=== PATIENT | female | born 1960 ===

== ENCOUNTER 2017-12-29 12:14 | Inpatient (IN) | payer BC, MEDICAID ==
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
[2017-12-29 13:10] LABS: Hematocrit 43 % (35-47); Hemoglobin 13.9 g/dl (12.0-16.0); Mean Corpuscular HGB Conc 33 g/dl (31-36); Mean Corpuscular Hemoglobin 29 pg (27-31); Mean Corpuscular Volume 90 fL (80-97); Red Blood Count 4.73 10^6/ul (4.00-5.40); Red Cell Distribution Width 14 % (10.5-15); White Blood Count 15.5 10^3/ul (3.5-10.8)
[2017-12-29 13:24] LABS: EGFR Non-African American 80.2 (>60)
[2017-12-29 14:09] LABS: ABS Basophils 0.1 10^3/ul (0-0.2); ABS Eosinophils 0.3 10^3/ul (0-0.6); ABS Monocytes 0.7 10^3/ul (0-0.8); ABS Neutrophils 10.4 10^3/ul (1.5-7.7); ABS Nucleated RBC 0 10^3/ul; Eosinophil % 2.1 % (0-6); Mean Platelet Volume 10.4 um3 (7.4-10.4); Nucleated Red Blood Cells % 0.2; Platelet Count 272 10^3/ul (150-450)
[2017-12-29] MEDS ORDERED: Magnesium Hydroxide LIQ* 30 ML UDC PO PRN (15:42)
[2017-12-29] MEDS: Insulin LISPRO* 1 UNITS UNIT SUBCUT SCH (18:51)
[2017-12-29] MEDS: traMADol TAB* 50 MG PO PRN (20:25)
[2017-12-29] MEDS: Heparin VIAL(*) 5000 UNITS/ML VIAL (FIVE THOUSAND) SUBCUT SCH (20:26)
[2017-12-29] MEDS: Famotidine TAB* 20 MG PO SCH (20:26)
[2017-12-29] MEDS: Insulin GLARGINE(*) 1 UNITS UNIT SUBCUT SCH (20:27)
[2017-12-29] MEDS: ALPRAZolam TAB* 0.25 MG PO PRN (20:32)
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
[2017-12-30] MEDS: Heparin VIAL(*) 5000 UNITS/ML VIAL (FIVE THOUSAND) SUBCUT SCH ×3 (07:15→21:39)
[2017-12-30] MEDS: Levothyroxine TAB* 100 MCG TAB PO SCH (07:15)
[2017-12-30] MEDS: Insulin GLARGINE(*) 1 UNITS UNIT SUBCUT SCH ×2 (09:00→21:39)
[2017-12-30] MEDS: Insulin LISPRO* 1 UNITS UNIT SUBCUT SCH ×3 (09:00→17:33)
[2017-12-30] MEDS: Aspirin EC TAB* 81 MG TAB.EC PO SCH (09:00)
[2017-12-30] MEDS: Atorvastatin* 40 MG TAB PO SCH (09:00)
[2017-12-30] MEDS: Famotidine TAB* 20 MG PO SCH ×2 (09:00→21:38)
[2017-12-30] MEDS: Lisinopril TAB* 10 MG PO SCH (09:00)
[2017-12-30] MEDS: Metoprolol Succinate XL TAB* 50 MG PO SCH (09:00)
[2017-12-30] MEDS: DULoxetine DR CAP* 60 MG CAP.DR PO SCH (09:04)
--- NOTE | 2017-12-30 15:30 | PN ---
Subjective Date of Service: 12/30/17 Interval History: Ms. Pavon feels well today. She is concerned about going back to a assisted. She has been to multiple nursing homes recently and has not been happy with the care she received. She feels as though she would do fine in an apartment or independent living because she feels as though she has no problems with ADLs. She reports feeling depressed, but does not verbalize any suicidal ideations to me. Denies CP, SOB, N/V/D, dizziness. No pain. Family History: Unchanged from Admission Social History: Unchanged from Admission Past Medical History: Unchanged from Admission Objective Active Medications: Acetaminophen (Tylenol Tab*) 650 mg PO Q4H PRN Alprazolam (Xanax Tab*) 0.25 mg PO Q8H PRN Aspirin (Aspirin Ec Tab*) 81 mg PO DAILY ANEL Atorvastatin Calcium (Lipitor*) 40 mg PO DAILY ANEL Duloxetine HCl (Cymbalta Cap*) 60 mg PO DAILY ANEL Famotidine (Pepcid Tab*) 20 mg PO BID ANEL; Protocol Heparin Sodium (Porcine) (Heparin Vial(*)) 5,000 units SUBCUT Q8HR ANEL Insulin Glargine (Lantus(*)) 40 units SUBCUT Q12H ANEL Insulin Human Lispro (Humalog*) 25 units SUBCUT AC ANEL Levothyroxine Sodium (Synthroid Tab*) 100 mcg PO 0600 ANEL Lisinopril (Prinivil Tab*) 20 mg PO DAILY ANEL Magnesium Hydroxide (Milk Of Magnesia Liq*) 30 ml PO Q4H PRN Metoprolol Succinate (Toprol Xl Tab*) 50 mg PO DAILY ANEL Temazepam (Restoril Cap*) 15 mg PO BEDTIME PRN Tramadol HCl (Ultram*) 50 mg PO Q12H PRN Vital Signs - 8 hr 12/30/17 07:44 Temperature 97.8 F Pulse Rate 79 Respiratory 15 Rate Blood Pressure 114/54 (mmHg) O2 Sat by Pulse 96 Oximetry Oxygen Devices in Use Now: None Appearance: Middle-aged woman sitting in chair in NAD Eyes: No Scleral Icterus Ears/Nose/Mouth/Throat: Mucous Membranes Moist Neck: NL Appearance and Movements; NL JVP Respiratory: Symmetrical Chest Expansion and Respiratory Effort, Clear to Auscultation Cardiovascular: NL Sounds; No Murmurs; No JVD, RRR Abdominal: NL Sounds; No Tenderness; No Distention Extremities: No Edema, No Clubbing, Cyanosis Skin: No Rash or Ulcers Neurological: Alert and Oriented x 3, - - Poor historian Lines/Tubes/Other Access: Clean, Dry and Intact Peripheral IV Nutrition: Taking PO's Result Diagrams: 12/29/17 12:47 12/29/17 12:47 Assess/Plan/Problems-Billing Assessment: Ms. Pavon is a 57yo with PMH of DM2, HLD, HTN, GERD, and chronic pain who presented to the ED on 12/29/17 from [facility] as the staff there felt as though they were not able to care for her, and was admitted for group home care. - Patient Problems (1) Diabetes mellitus type 2, uncontrolled Current Visit: Yes Status: Chronic Priority: High Code(s): E11.65 - TYPE 2 DIABETES MELLITUS WITH HYPERGLYCEMIA SNOMED Code(s): 17326071 Comment: - HgbA1C 12% - Glucose well controlled this admission on home insulin, so likely noncompliance with medications - Continue glargine, lispro AC (2) HTN (hypertension) Current Visit: Yes Status: Chronic Priority: Medium Code(s): I10 - ESSENTIAL (PRIMARY) HYPERTENSION SNOMED Code(s): 80864307 Comment: - Normotensive - Continue metoprolol, lisinopril (3) HLD (hyperlipidemia) Current Visit: Yes Status: Chronic Priority: Medium Code(s): E78.5 - HYPERLIPIDEMIA, UNSPECIFIED SNOMED Code(s): 20070044 Comment: - Continue atorvastatin (4) GERD (gastroesophageal reflux disease) Current Visit: Yes Status: Chronic Priority: Medium Code(s): K21.9 - GASTRO-ESOPHAGEAL REFLUX DISEASE WITHOUT ESOPHAGITIS SNOMED Code(s): 690286932 Comment: - Continue famotidine (5) Hypothyroidism Current Visit: Yes Status: Chronic Priority: Medium Code(s): E03.9 - HYPOTHYROIDISM, UNSPECIFIED SNOMED Code(s): 00677409 Comment: - Continue levothyroxine (6) Full code status Current Visit: Yes Status: Acute Priority: High Code(s): Z78.9 - OTHER SPECIFIED HEALTH STATUS SNOMED Code(s): 378582697 (7) DVT prophylaxis Current Visit: Yes Status: Acute Priority: High Code(s): FZC7132 - SNOMED Code(s): 352872733 Comment: - Heparin SQ Status and Disposition: Senior Care. Pending psych consult for capacity.
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
[2017-12-30] MEDS: ALPRAZolam TAB* 0.25 MG PO PRN (21:38)
[2017-12-30] MEDS: traMADol TAB* 50 MG PO PRN (21:39)
[2017-12-30] MEDS: Temazepam CAP* 15 MG PO PRN (21:39)
[2017-12-31] MEDS: Levothyroxine TAB* 100 MCG TAB PO SCH (06:50)
[2017-12-31] MEDS: Heparin VIAL(*) 5000 UNITS/ML VIAL (FIVE THOUSAND) SUBCUT SCH ×3 (06:50→21:39)
[2017-12-31 07:00] LABS: ABS Basophils 0 10^3/ul (0-0.2); ABS Eosinophils 0.2 10^3/ul (0-0.6); ABS Lymphocytes 3.5 10^3/ul (1.0-4.8); ABS Monocytes 0.5 10^3/ul (0-0.8); ABS Neutrophils 3.4 10^3/ul (1.5-7.7); ABS Nucleated RBC 0 10^3/ul; Eosinophil % 2.8 % (0-6); Hematocrit 36 % (35-47); Hemoglobin 11.8 g/dl (12.0-16.0); Lymphocyte % 45.2 % (25-47); Mean Corpuscular HGB Conc 33 g/dl (31-36); Mean Corpuscular Hemoglobin 29 pg (27-31); Mean Corpuscular Volume 89 fL (80-97); Mean Platelet Volume 9.8 um3 (7.4-10.4); Nucleated Red Blood Cells % 0.1; Platelet Count 245 10^3/ul (150-450); Red Blood Count 4.04 10^6/ul (4.00-5.40); Red Cell Distribution Width 14 % (10.5-15); White Blood Count 7.7 10^3/ul (3.5-10.8)
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
[2017-12-31] MEDS: Insulin GLARGINE(*) 1 UNITS UNIT SUBCUT SCH ×2 (10:25→20:34)
[2017-12-31] MEDS: Insulin LISPRO* 1 UNITS UNIT SUBCUT SCH ×3 (10:26→18:40)
[2017-12-31] MEDS: Atorvastatin* 40 MG TAB PO SCH (10:27)
[2017-12-31] MEDS: Famotidine TAB* 20 MG PO SCH ×2 (10:28→20:35)
[2017-12-31] MEDS: DULoxetine DR CAP* 60 MG CAP.DR PO SCH (10:28)
[2017-12-31] MEDS: Aspirin EC TAB* 81 MG TAB.EC PO SCH (10:28)
[2017-12-31] MEDS: Metoprolol Succinate XL TAB* 50 MG PO SCH (10:28)
[2017-12-31] MEDS: Lisinopril TAB* 10 MG PO SCH (10:29)
[2017-12-31] MEDS: traMADol TAB* 50 MG PO PRN (11:31)
--- NOTE | 2017-12-31 15:11 | PN ---
Subjective - Subjective Date of Service: 12/31/17 Service Type: [id number] Hosp care 15 min low complexity Subjective: Patient asserts that she can care for herself despite need for 2 assist. She reports desire to live in [facility] in an assisted living facility. She goes on to describe various needs, including a hospital bed, in order for her to care for herself. She is irritable and defensive in regards to temporary placement needs. She states "you are not going to put me in a fdc!" Objective - Appearance Appearance: Obese Dysmorphic Features: No Hygiene: Mal-odorous Grooming: Disheveled - Behavior Psychomotor Activities: Normal Exhibits Abnormal Movement: No - Attitude and Relatedness Attitude and Relatedness: Superficially Cooperative Eye Contact: Good - Speech Quality: Unpressured Latencies: Normal Quantity: Appropriate - Mood Patient's Decription of Mood: "Fine" - Affect Observed Affect: Good Affect Consistent with: Euthymia - Thought Process Patient's Thought Process: Circumstantial Thought Content: Yes Passive Wish - contigent upon placement, No Suicidal Planning, No Homicidal Ideation, No Paranoid Ideation - Sensorium Experiencing Hallucinations: No, Sensorium is Clear Type of Hallucinations: Visual: No, Auditory: No, Command: No - Level of Consciousness Level of Consciousness: Alert Orientation: Yes Intact, Yes Orientated to Time, Yes Orientated to Place, Yes Orientated to Person - Insight and Judgement Insight and Judgement: Impaired Plan - Plan Treatment Plan: Name: CLIFTON HOFFMAN Birthdate: 1960 [id number] Patient lacks capacity to make informed medical decisions due to impaired judgment and need for [facility]cfp. Medications: Current Medications Acetaminophen (Tylenol Tab*) 650 mg PO Q4H PRN PRN Reason: FEVER/PAIN Alprazolam (Xanax Tab*) 0.25 mg PO Q8H PRN PRN Reason: ANXIETY Last Admin: 12/30/17 21:38 Dose: 0.25 mg Aspirin (Aspirin Ec Tab*) 81 mg PO DAILY [facility] Last Admin: 12/31/17 10:28 Dose: 81 mg Atorvastatin Calcium (Lipitor*) 40 mg PO DAILY [facility] Last Admin: 12/31/17 10:27 Dose: 40 mg Duloxetine HCl (Cymbalta Cap*) 60 mg PO DAILY [facility] Last Admin: 10/24/18 10:28 Dose: 60 mg Famotidine (Pepcid Tab*) 20 mg PO BID [facility]; Protocol Last Admin: 12/31/17 10:28 Dose: 20 mg Heparin Sodium (Porcine) (Heparin Vial(*)) 5,000 units SUBCUT Q8HR [facility] Last Admin: 12/31/17 14:38 Dose: 5,000 units Insulin Glargine (Lantus(*)) 40 units SUBCUT Q12H [facility] Last Admin: 12/31/17 10:25 Dose: 40 unit Insulin Human Lispro (Humalog*) 25 units SUBCUT AC [facility] Last Admin: 12/31/17 12:47 Dose: 25 units Levothyroxine Sodium (Synthroid Tab*) 100 mcg PO 0600 [facility] Last Admin: 12/31/17 06:50 Dose: 100 mcg Lisinopril (Prinivil Tab*) 20 mg PO DAILY [facility] Last Admin: 12/31/17 10:29 Dose: 20 mg Magnesium Hydroxide (Milk Of Magnesia Liq*) 30 ml PO Q4H PRN PRN Reason: CONSTIPATION Metoprolol Succinate (Toprol Xl Tab*) 50 mg PO DAILY [facility] Last Admin: 12/31/17 10:28 Dose: 50 mg Temazepam (Restoril Cap*) 15 mg PO BEDTIME PRN PRN Reason: INSOMNIA Last Admin: 12/30/17 21:39 Dose: 15 mg Tramadol HCl (Ultram*) 50 mg PO Q12H PRN PRN Reason: leg pain Last Admin: 12/31/17 11:31 Dose: 50 mg
[2017-12-31] MEDS: Temazepam CAP* 15 MG PO PRN (20:44)
[2018-01-01] MEDS: Levothyroxine TAB* 100 MCG TAB PO SCH (05:14)
[2018-01-01] MEDS: Heparin VIAL(*) 5000 UNITS/ML VIAL (FIVE THOUSAND) SUBCUT SCH ×3 (05:14→21:25)
[2018-01-01] MEDS: Metoprolol Succinate XL TAB* 50 MG PO SCH (08:44)
[2018-01-01] MEDS: Famotidine TAB* 20 MG PO SCH ×2 (08:44→21:26)
[2018-01-01] MEDS: Atorvastatin* 40 MG TAB PO SCH (08:44)
[2018-01-01] MEDS: Lisinopril TAB* 10 MG PO SCH (08:44)
[2018-01-01] MEDS: Insulin LISPRO* 1 UNITS UNIT SUBCUT SCH ×3 (08:44→17:28)
[2018-01-01] MEDS: Insulin GLARGINE(*) 1 UNITS UNIT SUBCUT SCH ×2 (08:44→21:24)
[2018-01-01] MEDS: Aspirin EC TAB* 81 MG TAB.EC PO SCH (08:44)
[2018-01-01] MEDS: DULoxetine DR CAP* 60 MG CAP.DR PO SCH (08:46)
--- NOTE | 2018-01-01 13:43 | PN ---
Subjective Date of Service: 01/01/18 Interval History: Ms. Pvaon feels well today. She is experiencing some left foot weakness which she says is typical for her intermittently. She is still able to ambulate and has been up in the room with 1 assist. Still adamant that she does not want to go to a snf and would prefer independent living. Denies CP, SOB, N/V/D , dizziness. Family History: Unchanged from Admission Social History: Unchanged from Admission Past Medical History: Unchanged from Admission Objective Active Medications: Acetaminophen (Tylenol Tab*) 650 mg PO Q4H PRN Alprazolam (Xanax Tab*) 0.25 mg PO Q8H PRN Aspirin (Aspirin Ec Tab*) 81 mg PO DAILY [facility] Atorvastatin Calcium (Lipitor*) 40 mg PO DAILY [facility] Duloxetine HCl (Cymbalta Cap*) 60 mg PO DAILY [facility] Famotidine (Pepcid Tab*) 20 mg PO BID [facility]; Protocol Heparin Sodium (Porcine) (Heparin Vial(*)) 5,000 units SUBCUT Q8HR [facility] Insulin Glargine (Lantus(*)) 40 units SUBCUT Q12H [facility] Insulin Human Lispro (Humalog*) 25 units SUBCUT AC [facility] Levothyroxine Sodium (Synthroid Tab*) 100 mcg PO 0600 [facility] Lisinopril (Prinivil Tab*) 20 mg PO DAILY [facility] Magnesium Hydroxide (Milk Of Magnesia Liq*) 30 ml PO Q4H PRN Metoprolol Succinate (Toprol Xl Tab*) 50 mg PO DAILY [facility] Temazepam (Restoril Cap*) 15 mg PO BEDTIME PRN Tramadol HCl (Ultram*) 50 mg PO Q12H PRN Vital Signs - 8 hr 01/01/18 01/01/18 01/01/18 07:44 08:00 13:36 Temperature 97.6 F 98.3 F Pulse Rate 55 58 Respiratory 16 20 18 Rate Blood Pressure 141/54 116/64 (mmHg) O2 Sat by Pulse 100 99 Oximetry Oxygen Devices in Use Now: None Appearance: Middle-aged woman sitting in bed in NAD Eyes: No Scleral Icterus Ears/Nose/Mouth/Throat: Mucous Membranes Moist Neck: NL Appearance and Movements; NL JVP Respiratory: Symmetrical Chest Expansion and Respiratory Effort, Clear to Auscultation Cardiovascular: NL Sounds; No Murmurs; No JVD, RRR Abdominal: NL Sounds; No Tenderness; No Distention Extremities: No Edema, No Clubbing, Cyanosis Skin: No Rash or Ulcers Neurological: Alert and Oriented x 3, NL Sensation, NL Muscle Strength and Tone Lines/Tubes/Other Access: Clean, Dry and Intact Peripheral IV Nutrition: Taking PO's Result Diagrams: 12/31/17 06:34 12/29/17 12:47 Assess/Plan/Problems-Billing Assessment: Ms. Pavon is a 57yo with PMH of DM2, HLD, HTN, GERD, and chronic pain who presented to the ED on 12/29/17 from [facility] as the staff there felt as though they were not able to care for her, and was admitted for fci care. - Patient Problems (1) Intellectual disability Current Visit: Yes Status: Chronic Priority: High Code(s): F79 - UNSPECIFIED INTELLECTUAL DISABILITIES SNOMED Code(s): 374502807 Comment: - Lacks capacity per psych - Psych following, any additional recommendations (2) Diabetes mellitus type 2, uncontrolled Current Visit: Yes Status: Chronic Priority: High Code(s): E11.65 - TYPE 2 DIABETES MELLITUS WITH HYPERGLYCEMIA SNOMED Code(s): 74422220 Comment: - HgbA1C 12%; glucose well controlled this admission on home insulin, so likely noncompliance with medications - Continue glargine, lispro AC (3) HTN (hypertension) Current Visit: Yes Status: Chronic Priority: Medium Code(s): I10 - ESSENTIAL (PRIMARY) HYPERTENSION SNOMED Code(s): 13201782 Comment: - Normotensive - Continue metoprolol, lisinopril (4) HLD (hyperlipidemia) Current Visit: Yes Status: Chronic Priority: Medium Code(s): E78.5 - HYPERLIPIDEMIA, UNSPECIFIED SNOMED Code(s): 14548014 Comment: - Continue atorvastatin (5) GERD (gastroesophageal reflux disease) Current Visit: Yes Status: Chronic Priority: Medium Code(s): K21.9 - GASTRO-ESOPHAGEAL REFLUX DISEASE WITHOUT ESOPHAGITIS SNOMED Code(s): 257762669 Comment: - Continue famotidine (6) Hypothyroidism Current Visit: Yes Status: Chronic Priority: Medium Code(s): E03.9 - HYPOTHYROIDISM, UNSPECIFIED SNOMED Code(s): 44545597 Comment: - Continue levothyroxine (7) Full code status Current Visit: Yes Status: Acute Priority: High Code(s): Z78.9 - OTHER SPECIFIED HEALTH STATUS SNOMED Code(s): 456740425 (8) DVT prophylaxis Current Visit: Yes Status: Acute Priority: High Code(s): ZMM1259 - SNOMED Code(s): 160891804 Comment: - Heparin SQ Status and Disposition: Inpatient fci. Looking for placement.
[2018-01-01] MEDS: traMADol TAB* 50 MG PO PRN (14:35)
[2018-01-01] MEDS: Acetaminophen TAB* 325 MG PO PRN (21:25)
[2018-01-01] MEDS: Temazepam CAP* 15 MG PO PRN (21:26)
[2018-01-02] MEDS: Heparin VIAL(*) 5000 UNITS/ML VIAL (FIVE THOUSAND) SUBCUT SCH ×3 (06:09→22:38)
[2018-01-02] MEDS: Levothyroxine TAB* 100 MCG TAB PO SCH (06:10)
[2018-01-02] MEDS: Insulin GLARGINE(*) 1 UNITS UNIT SUBCUT SCH ×2 (08:56→22:37)
[2018-01-02] MEDS: Insulin LISPRO* 1 UNITS UNIT SUBCUT SCH ×3 (08:56→18:02)
[2018-01-02] MEDS: Lisinopril TAB* 10 MG PO SCH (08:57)
[2018-01-02] MEDS: Aspirin EC TAB* 81 MG TAB.EC PO SCH (08:57)
[2018-01-02] MEDS: Metoprolol Succinate XL TAB* 50 MG PO SCH (08:57)
[2018-01-02] MEDS: DULoxetine DR CAP* 60 MG CAP.DR PO SCH (08:57)
[2018-01-02] MEDS: Atorvastatin* 40 MG TAB PO SCH (08:57)
[2018-01-02] MEDS: Famotidine TAB* 20 MG PO SCH ×2 (08:57→22:37)
[2018-01-02] MEDS: Acetaminophen TAB* 325 MG PO PRN (10:05)
--- NOTE | 2018-01-02 15:01 | PN ---
Subjective Date of Service: 01/02/18 Interval History: Ms. Pavon feels fine today. She continues to have some right foot weakness as well as some limited ROM, though she continues to state this is normal for her. She is having a small amount of bright red blood per rectum. Patient states she has had problems with hemorrhoids in the past and they tend to flare up often. She has been up ambulating. Continues to state that she wants to stay in [place] and does not want to go to a group home. Denies CP, SOB, N/V/D, dizziness. Family History: Unchanged from Admission Social History: Unchanged from Admission Past Medical History: Unchanged from Admission Objective Active Medications: Acetaminophen (Tylenol Tab*) 650 mg PO Q4H PRN Alprazolam (Xanax Tab*) 0.25 mg PO Q8H PRN Aspirin (Aspirin Ec Tab*) 81 mg PO DAILY [facility] Atorvastatin Calcium (Lipitor*) 40 mg PO DAILY [facility] Duloxetine HCl (Cymbalta Cap*) 60 mg PO DAILY [facility] Famotidine (Pepcid Tab*) 20 mg PO BID [facility]; Protocol Heparin Sodium (Porcine) (Heparin Vial(*)) 5,000 units SUBCUT Q8HR [facility] Insulin Glargine (Lantus(*)) 40 units SUBCUT Q12H [facility] Insulin Human Lispro (Humalog*) 25 units SUBCUT AC [facility] Levothyroxine Sodium (Synthroid Tab*) 100 mcg PO 0600 [facility] Lisinopril (Prinivil Tab*) 20 mg PO DAILY [facility] Magnesium Hydroxide (Milk Of Magnesia Liq*) 30 ml PO Q4H PRN Metoprolol Succinate (Toprol Xl Tab*) 50 mg PO DAILY [facility] Temazepam (Restoril Cap*) 15 mg PO BEDTIME PRN Tramadol HCl (Ultram*) 50 mg PO Q12H PRN Vital Signs - 8 hr 01/02/18 01/02/18 07:55 07:56 Temperature 96.6 F Pulse Rate 52 Respiratory 18 16 Rate Blood Pressure 125/56 (mmHg) O2 Sat by Pulse 100 Oximetry Oxygen Devices in Use Now: None Appearance: Middle-aged woman sitting in chair in NAD Eyes: No Scleral Icterus Ears/Nose/Mouth/Throat: Mucous Membranes Moist Neck: NL Appearance and Movements; NL JVP Respiratory: Symmetrical Chest Expansion and Respiratory Effort, Clear to Auscultation Cardiovascular: NL Sounds; No Murmurs; No JVD, RRR Abdominal: NL Sounds; No Tenderness; No Distention Extremities: No Edema, No Clubbing, Cyanosis Skin: No Rash or Ulcers Neurological: Alert and Oriented x 3 Lines/Tubes/Other Access: Clean, Dry and Intact Peripheral IV Nutrition: Taking PO's Result Diagrams: 12/31/17 06:34 12/29/17 12:47 Assess/Plan/Problems-Billing Assessment: Ms. Pavon is a 57yo with PMH of DM2, HLD, HTN, GERD, and chronic pain who presented to the ED on 12/29/17 from [facility] as the staff there felt as though they were not able to care for her, and was admitted for penitentiary care. - Patient Problems (1) Intellectual disability Current Visit: Yes Status: Chronic Priority: High Code(s): F79 - UNSPECIFIED INTELLECTUAL DISABILITIES SNOMED Code(s): 203334588 Comment: - Lacks capacity per psych - Psych following; any additional recommendations appreciated (2) Bleeding hemorrhoids Current Visit: Yes Status: Acute Priority: High Code(s): K64.9 - UNSPECIFIED HEMORRHOIDS SNOMED Code(s): 30711730 Comment: - No external hemorrhoids - Likely cause of BRBPR; little concern for GIB at this time - Start tucks - Will check CBC in the AM (3) Diabetes mellitus type 2, uncontrolled Current Visit: Yes Status: Chronic Priority: High Code(s): E11.65 - TYPE 2 DIABETES MELLITUS WITH HYPERGLYCEMIA SNOMED Code(s): 99133728 Comment: - HgbA1C 12%; glucose well controlled this admission on home insulin, so likely noncompliance with medications - Continue glargine, lispro AC (4) HTN (hypertension) Current Visit: Yes Status: Chronic Priority: Medium Code(s): I10 - ESSENTIAL (PRIMARY) HYPERTENSION SNOMED Code(s): 76593098 Comment: - Normotensive - Continue metoprolol, lisinopril (5) HLD (hyperlipidemia) Current Visit: Yes Status: Chronic Priority: Medium Code(s): E78.5 - HYPERLIPIDEMIA, UNSPECIFIED SNOMED Code(s): 37668508 Comment: - Continue atorvastatin (6) GERD (gastroesophageal reflux disease) Current Visit: Yes Status: Chronic Priority: Medium Code(s): K21.9 - GASTRO-ESOPHAGEAL REFLUX DISEASE WITHOUT ESOPHAGITIS SNOMED Code(s): 550451475 Comment: - Continue famotidine (7) Hypothyroidism Current Visit: Yes Status: Chronic Priority: Medium Code(s): E03.9 - HYPOTHYROIDISM, UNSPECIFIED SNOMED Code(s): 71447473 Comment: - Continue levothyroxine (8) Full code status Current Visit: Yes Status: Acute Priority: High Code(s): Z78.9 - OTHER SPECIFIED HEALTH STATUS SNOMED Code(s): 598628372 (9) DVT prophylaxis Current Visit: Yes Status: Acute Priority: High Code(s): PCI8840 - SNOMED Code(s): 926975570 Comment: - Heparin SQ Status and Disposition: Inpatient penitentiary. Looking for placement.
[2018-01-02] MEDS: Witch Hazel PAD* JAR TOPICAL SCH (18:03)
[2018-01-02] MEDS: Temazepam CAP* 15 MG PO PRN (22:36)
[2018-01-03] MEDS: Levothyroxine TAB* 100 MCG TAB PO SCH (05:49)
[2018-01-03] MEDS: Heparin VIAL(*) 5000 UNITS/ML VIAL (FIVE THOUSAND) SUBCUT SCH ×3 (05:53→22:42)
[2018-01-03 07:40] LABS: ABS Basophils 0 10^3/ul (0-0.2); ABS Eosinophils 0.3 10^3/ul (0-0.6); ABS Lymphocytes 3.6 10^3/ul (1.0-4.8); ABS Monocytes 0.6 10^3/ul (0-0.8); ABS Neutrophils 4.8 10^3/ul (1.5-7.7); ABS Nucleated RBC 0 10^3/ul; Eosinophil % 3.5 % (0-6); Hematocrit 42 % (35-47); Hemoglobin 13.8 g/dl (12.0-16.0); Lymphocyte % 38.6 % (25-47); Mean Corpuscular HGB Conc 33 g/dl (31-36); Mean Corpuscular Hemoglobin 30 pg (27-31); Mean Corpuscular Volume 90 fL (80-97); Mean Platelet Volume 10.7 um3 (7.4-10.4); Nucleated Red Blood Cells % 0.1; Platelet Count 260 10^3/ul (150-450); Red Blood Count 4.65 10^6/ul (4.00-5.40); Red Cell Distribution Width 14 % (10.5-15); White Blood Count 9.3 10^3/ul (3.5-10.8)
[2018-01-03] MEDS: Lisinopril TAB* 10 MG PO SCH (10:02)
[2018-01-03] MEDS: Atorvastatin* 40 MG TAB PO SCH (10:02)
[2018-01-03] MEDS: DULoxetine DR CAP* 60 MG CAP.DR PO SCH (10:02)
[2018-01-03] MEDS: Aspirin EC TAB* 81 MG TAB.EC PO SCH (10:02)
[2018-01-03] MEDS: Metoprolol Succinate XL TAB* 50 MG PO SCH (10:03)
[2018-01-03] MEDS: Famotidine TAB* 20 MG PO SCH ×2 (10:03→22:42)
[2018-01-03] MEDS: Insulin LISPRO* 1 UNITS UNIT SUBCUT SCH ×3 (10:03→18:02)
[2018-01-03] MEDS: Witch Hazel PAD* JAR TOPICAL SCH (10:03)
[2018-01-03] MEDS: Insulin GLARGINE(*) 1 UNITS UNIT SUBCUT SCH ×2 (10:03→19:59)
--- NOTE | 2018-01-03 13:46 | PN ---
Subjective Date of Service: 01/03/18 Interval History: Ms. Pavon feels well this morning. She states her should is aching with movement, though this is normal for her. She reports her foot pain/stiffness is improved. She offers no other complaints. She would like to go to [facility] as she would like to be in [place] so she is able to visit family easily. She denies CP, SOB, N/V/D, dizziness. Nursing reports a small amount of bright red blood with BMs. Family History: Unchanged from Admission Social History: Unchanged from Admission Past Medical History: Unchanged from Admission Objective Active Medications: Acetaminophen (Tylenol Tab*) 650 mg PO Q4H PRN Alprazolam (Xanax Tab*) 0.25 mg PO Q8H PRN Aspirin (Aspirin Ec Tab*) 81 mg PO DAILY [facility] Atorvastatin Calcium (Lipitor*) 40 mg PO DAILY [facility] Duloxetine HCl (Cymbalta Cap*) 60 mg PO DAILY [facility] Famotidine (Pepcid Tab*) 20 mg PO BID [facility]; Protocol Heparin Sodium (Porcine) (Heparin Vial(*)) 5,000 units SUBCUT Q8HR [facility] Insulin Glargine (Lantus(*)) 40 units SUBCUT Q12H [facility] Insulin Human Lispro (Humalog*) 25 units SUBCUT AC [facility] Levothyroxine Sodium (Synthroid Tab*) 100 mcg PO 0600 [facility] Lisinopril (Prinivil Tab*) 20 mg PO DAILY [facility] Magnesium Hydroxide (Milk Of Magnesia Liq*) 30 ml PO Q4H PRN Metoprolol Succinate (Toprol Xl Tab*) 50 mg PO DAILY [facility] Temazepam (Restoril Cap*) 15 mg PO BEDTIME PRN Tramadol HCl (Ultram*) 50 mg PO Q12H PRN Witch Ella (Tucks*) 1 pad TOPICAL DAILY [facility] Vital Signs - 8 hr 01/03/18 01/03/18 07:30 08:00 Temperature 97.7 F Pulse Rate 60 Respiratory 16 16 Rate Blood Pressure 124/50 (mmHg) O2 Sat by Pulse 96 Oximetry Oxygen Devices in Use Now: None Appearance: Middle-aged woman sitting in chair in NAD Eyes: No Scleral Icterus Ears/Nose/Mouth/Throat: Mucous Membranes Moist Neck: NL Appearance and Movements; NL JVP Respiratory: Symmetrical Chest Expansion and Respiratory Effort, Clear to Auscultation Cardiovascular: NL Sounds; No Murmurs; No JVD, RRR Abdominal: NL Sounds; No Tenderness; No Distention Extremities: No Edema, No Clubbing, Cyanosis Skin: No Rash or Ulcers Neurological: Alert and Oriented x 3, NL Sensation Lines/Tubes/Other Access: Clean, Dry and Intact Peripheral IV Nutrition: Taking PO's Result Diagrams: 01/03/18 06:36 12/29/17 12:47 Assess/Plan/Problems-Billing Assessment: Ms. Pavon is a 57yo with PMH of DM2, HLD, HTN, GERD, and chronic pain who presented to the ED on 12/29/17 from [facility] as the staff there felt as though they were not able to care for her, and was admitted for chcf care. - Patient Problems (1) Intellectual disability Current Visit: Yes Status: Chronic Priority: High Code(s): F79 - UNSPECIFIED INTELLECTUAL DISABILITIES SNOMED Code(s): 995785497 Comment: - Lacks capacity per psych - Psych following; any additional recommendations appreciated (2) Bleeding hemorrhoids Current Visit: Yes Status: Acute Priority: High Code(s): K64.9 - UNSPECIFIED HEMORRHOIDS SNOMED Code(s): 39442006 Comment: - No external hemorrhoids - No concern for GIB at this time; H&H stable - Continue edgar simmons (3) Diabetes mellitus type 2, uncontrolled Current Visit: Yes Status: Chronic Priority: High Code(s): E11.65 - TYPE 2 DIABETES MELLITUS WITH HYPERGLYCEMIA SNOMED Code(s): 26868992 Comment: - HgbA1C 12%; glucose well controlled this admission on home insulin, so likely noncompliance with medications - Continue glargine, lispro AC (4) HTN (hypertension) Current Visit: Yes Status: Chronic Priority: Medium Code(s): I10 - ESSENTIAL (PRIMARY) HYPERTENSION SNOMED Code(s): 02001855 Comment: - Normotensive - Continue metoprolol, lisinopril (5) HLD (hyperlipidemia) Current Visit: Yes Status: Chronic Priority: Medium Code(s): E78.5 - HYPERLIPIDEMIA, UNSPECIFIED SNOMED Code(s): 98637631 Comment: - Continue atorvastatin (6) GERD (gastroesophageal reflux disease) Current Visit: Yes Status: Chronic Priority: Medium Code(s): K21.9 - GASTRO-ESOPHAGEAL REFLUX DISEASE WITHOUT ESOPHAGITIS SNOMED Code(s): 012984063 Comment: - Continue famotidine (7) Hypothyroidism Current Visit: Yes Status: Chronic Priority: Medium Code(s): E03.9 - HYPOTHYROIDISM, UNSPECIFIED SNOMED Code(s): 06820585 Comment: - Continue levothyroxine (8) Full code status Current Visit: Yes Status: Acute Priority: High Code(s): Z78.9 - OTHER SPECIFIED HEALTH STATUS SNOMED Code(s): 508257804 (9) DVT prophylaxis Current Visit: Yes Status: Acute Priority: High Code(s): UHN2037 - SNOMED Code(s): 318030024 Comment: - Heparin SQ Status and Disposition: Inpatient chcf. Looking for placement.
[2018-01-03] MEDS: Acetaminophen TAB* 325 MG PO PRN (19:57)
[2018-01-04 06:35] LABS: Hematocrit 39 % (35-47); Hemoglobin 12.8 g/dl (12.0-16.0)
[2018-01-04] MEDS: Heparin VIAL(*) 5000 UNITS/ML VIAL (FIVE THOUSAND) SUBCUT SCH ×3 (07:28→21:47)
[2018-01-04] MEDS: Levothyroxine TAB* 100 MCG TAB PO SCH (07:28)
[2018-01-04] MEDS: Atorvastatin* 40 MG TAB PO SCH (09:38)
[2018-01-04] MEDS: Lisinopril TAB* 10 MG PO SCH (09:38)
[2018-01-04] MEDS: Metoprolol Succinate XL TAB* 50 MG PO SCH (09:38)
[2018-01-04] MEDS: DULoxetine DR CAP* 60 MG CAP.DR PO SCH (09:38)
[2018-01-04] MEDS: Famotidine TAB* 20 MG PO SCH ×2 (09:38→21:47)
[2018-01-04] MEDS: Insulin LISPRO* 1 UNITS UNIT SUBCUT SCH ×3 (09:39→17:47)
[2018-01-04] MEDS: Insulin GLARGINE(*) 1 UNITS UNIT SUBCUT SCH ×2 (09:39→21:47)
[2018-01-04] MEDS: Aspirin EC TAB* 81 MG TAB.EC PO SCH (09:39)
[2018-01-04] MEDS: Witch Hazel PAD* JAR TOPICAL SCH (09:42)
--- NOTE | 2018-01-04 12:03 | PN ---
Subjective Date of Service: 01/04/18 Interval History: Ms. Pavon feels well today. She denies pain. Continues to have some hemorrhoidal bleeding. She denies rectal pain, but c/o rectal itching. She offers no other complaints, expect continuously stating that she would like to go to [facility] as she would like to stay in [place], close to family. Denies CP , SOB, N/V/D, dizziness. Family History: Unchanged from Admission Social History: Unchanged from Admission Past Medical History: Unchanged from Admission Objective Active Medications: Acetaminophen (Tylenol Tab*) 650 mg PO Q4H PRN Alprazolam (Xanax Tab*) 0.25 mg PO Q8H PRN Aspirin (Aspirin Ec Tab*) 81 mg PO DAILY [facility] Atorvastatin Calcium (Lipitor*) 40 mg PO DAILY [facility] Duloxetine HCl (Cymbalta Cap*) 60 mg PO DAILY [facility] Famotidine (Pepcid Tab*) 20 mg PO BID [facility]; Protocol Heparin Sodium (Porcine) (Heparin Vial(*)) 5,000 units SUBCUT Q8HR [facility] Insulin Glargine (Lantus(*)) 40 units SUBCUT Q12H [facility] Insulin Human Lispro (Humalog*) 25 units SUBCUT AC [facility] Levothyroxine Sodium (Synthroid Tab*) 100 mcg PO 0600 [facility] Lisinopril (Prinivil Tab*) 20 mg PO DAILY [facility] Magnesium Hydroxide (Milk Of Magnesia Liq*) 30 ml PO Q4H PRN Metoprolol Succinate (Toprol Xl Tab*) 50 mg PO DAILY [facility] Temazepam (Restoril Cap*) 15 mg PO BEDTIME PRN Tramadol HCl (Ultram*) 50 mg PO Q12H PRN Witch Ella (Tucks*) 1 pad TOPICAL DAILY [facility] Vital Signs - 8 hr 01/04/18 01/04/18 07:42 08:00 Temperature 97.6 F Pulse Rate 59 Respiratory 16 18 Rate Blood Pressure 120/37 (mmHg) O2 Sat by Pulse 95 Oximetry Oxygen Devices in Use Now: None Appearance: Middle-aged woman sitting in chair in NAD Eyes: No Scleral Icterus Ears/Nose/Mouth/Throat: Mucous Membranes Moist Neck: NL Appearance and Movements; NL JVP Respiratory: Symmetrical Chest Expansion and Respiratory Effort, Clear to Auscultation Cardiovascular: NL Sounds; No Murmurs; No JVD, RRR Abdominal: NL Sounds; No Tenderness; No Distention Extremities: No Edema Skin: No Rash or Ulcers Neurological: Alert and Oriented x 3 Lines/Tubes/Other Access: Clean, Dry and Intact Peripheral IV Nutrition: Taking PO's Result Diagrams: 01/04/18 06:00 12/29/17 12:47 Assess/Plan/Problems-Billing Assessment: Ms. Pavon is a 57yo with PMH of DM2, HLD, HTN, GERD, and chronic pain who presented to the ED on 12/29/17 from [facility] as the staff there felt as though they were not able to care for her, and was admitted for care home care. - Patient Problems (1) Intellectual disability Current Visit: Yes Status: Chronic Priority: High Code(s): F79 - UNSPECIFIED INTELLECTUAL DISABILITIES SNOMED Code(s): 251683683 Comment: - Lacks capacity per psych - Psych following; any additional recommendations appreciated (2) Bleeding hemorrhoids Current Visit: Yes Status: Acute Priority: High Code(s): K64.9 - UNSPECIFIED HEMORRHOIDS SNOMED Code(s): 46900665 Comment: - Internal; no external noted - No concern for GIB at this time; H&H stable - Continue witfelice simmons (3) Diabetes mellitus type 2, uncontrolled Current Visit: Yes Status: Chronic Priority: High Code(s): E11.65 - TYPE 2 DIABETES MELLITUS WITH HYPERGLYCEMIA SNOMED Code(s): 28749104 Comment: - HgbA1C 12%; glucose well controlled this admission on home insulin, so likely noncompliance with medications - Continue glargine, lispro AC (4) HTN (hypertension) Current Visit: Yes Status: Chronic Priority: Medium Code(s): I10 - ESSENTIAL (PRIMARY) HYPERTENSION SNOMED Code(s): 70274416 Comment: - Normotensive - Continue metoprolol, lisinopril (5) HLD (hyperlipidemia) Current Visit: Yes Status: Chronic Priority: Medium Code(s): E78.5 - HYPERLIPIDEMIA, UNSPECIFIED SNOMED Code(s): 54318550 Comment: - Continue atorvastatin (6) GERD (gastroesophageal reflux disease) Current Visit: Yes Status: Chronic Priority: Medium Code(s): K21.9 - GASTRO-ESOPHAGEAL REFLUX DISEASE WITHOUT ESOPHAGITIS SNOMED Code(s): 356513290 Comment: - Continue famotidine (7) Hypothyroidism Current Visit: Yes Status: Chronic Priority: Medium Code(s): E03.9 - HYPOTHYROIDISM, UNSPECIFIED SNOMED Code(s): 29109560 Comment: - Continue levothyroxine (8) Full code status Current Visit: Yes Status: Acute Priority: High Code(s): Z78.9 - OTHER SPECIFIED HEALTH STATUS SNOMED Code(s): 318735297 (9) DVT prophylaxis Current Visit: Yes Status: Acute Priority: High Code(s): OAT6153 - SNOMED Code(s): 174546346 Comment: - Heparin SQ Status and Disposition: Inpatient care home. Looking for placement.
[2018-01-04] MEDS: traMADol TAB* 50 MG PO PRN (21:48)
[2018-01-05] MEDS: Levothyroxine TAB* 100 MCG TAB PO SCH (05:20)
[2018-01-05] MEDS: Heparin VIAL(*) 5000 UNITS/ML VIAL (FIVE THOUSAND) SUBCUT SCH ×3 (05:21→21:32)
[2018-01-05 07:24] LABS: ABS Basophils 0 10^3/ul (0-0.2); ABS Eosinophils 0.3 10^3/ul (0-0.6); ABS Lymphocytes 3.7 10^3/ul (1.0-4.8); ABS Monocytes 0.6 10^3/ul (0-0.8); ABS Neutrophils 4.3 10^3/ul (1.5-7.7); ABS Nucleated RBC 0 10^3/ul; Eosinophil % 2.8 % (0-6); Hematocrit 37 % (35-47); Hemoglobin 12.2 g/dl (12.0-16.0); Lymphocyte % 41.5 % (25-47); Mean Corpuscular HGB Conc 33 g/dl (31-36); Mean Corpuscular Hemoglobin 29 pg (27-31); Mean Corpuscular Volume 89 fL (80-97); Mean Platelet Volume 9.8 um3 (7.4-10.4); Nucleated Red Blood Cells % 0.1; Platelet Count 267 10^3/ul (150-450); Red Blood Count 4.19 10^6/ul (4.00-5.40); Red Cell Distribution Width 14 % (10.5-15); White Blood Count 8.9 10^3/ul (3.5-10.8)
[2018-01-05] MEDS: Insulin GLARGINE(*) 1 UNITS UNIT SUBCUT SCH ×2 (09:52→21:32)
[2018-01-05] MEDS: Insulin LISPRO* 1 UNITS UNIT SUBCUT SCH ×3 (09:52→18:09)
[2018-01-05] MEDS: Aspirin EC TAB* 81 MG TAB.EC PO SCH (09:53)
[2018-01-05] MEDS: Lisinopril TAB* 10 MG PO SCH (09:53)
[2018-01-05] MEDS: DULoxetine DR CAP* 60 MG CAP.DR PO SCH (09:53)
[2018-01-05] MEDS: Metoprolol Succinate XL TAB* 50 MG PO SCH (09:53)
[2018-01-05] MEDS: Famotidine TAB* 20 MG PO SCH ×2 (09:53→21:32)
[2018-01-05] MEDS: Atorvastatin* 40 MG TAB PO SCH (09:54)
[2018-01-05] MEDS: Witch Hazel PAD* JAR TOPICAL SCH (09:55)
[2018-01-05] MEDS: traMADol TAB* 50 MG PO PRN (22:21)
[2018-01-06] MEDS: Heparin VIAL(*) 5000 UNITS/ML VIAL (FIVE THOUSAND) SUBCUT SCH ×3 (05:16→21:39)
[2018-01-06] MEDS: Levothyroxine TAB* 100 MCG TAB PO SCH (05:16)
[2018-01-06] MEDS: Metoprolol Succinate XL TAB* 50 MG PO SCH (08:15)
[2018-01-06] MEDS: Famotidine TAB* 20 MG PO SCH ×2 (08:15→21:39)
[2018-01-06] MEDS: Atorvastatin* 40 MG TAB PO SCH (08:15)
[2018-01-06] MEDS: Insulin LISPRO* 1 UNITS UNIT SUBCUT SCH ×3 (08:15→17:32)
[2018-01-06] MEDS: Aspirin EC TAB* 81 MG TAB.EC PO SCH (08:15)
[2018-01-06] MEDS: Insulin GLARGINE(*) 1 UNITS UNIT SUBCUT SCH ×2 (08:15→21:39)
[2018-01-06] MEDS: Lisinopril TAB* 10 MG PO SCH (08:15)
[2018-01-06] MEDS: DULoxetine DR CAP* 60 MG CAP.DR PO SCH (08:16)
[2018-01-06] MEDS: Witch Hazel PAD* JAR TOPICAL SCH (08:18)
[2018-01-06 19:04] LABS: ABS Basophils 0 10^3/ul (0-0.2); ABS Eosinophils 0.3 10^3/ul (0-0.6); ABS Lymphocytes 3.9 10^3/ul (1.0-4.8); ABS Monocytes 0.6 10^3/ul (0-0.8); ABS Nucleated RBC 0 10^3/ul; Eosinophil % 2.3 % (0-6); Hematocrit 37 % (35-47); Hemoglobin 12.2 g/dl (12.0-16.0); Lymphocyte % 36.7 % (25-47); Mean Corpuscular HGB Conc 33 g/dl (31-36); Mean Corpuscular Hemoglobin 29 pg (27-31); Mean Corpuscular Volume 89 fL (80-97); Mean Platelet Volume 9.5 um3 (7.4-10.4); Nucleated Red Blood Cells % 0.1; Platelet Count 328 10^3/ul (150-450); Red Blood Count 4.15 10^6/ul (4.00-5.40); Red Cell Distribution Width 14 % (10.5-15); White Blood Count 10.7 10^3/ul (3.5-10.8)
[2018-01-07] MEDS: Levothyroxine TAB* 100 MCG TAB PO SCH (05:59)
[2018-01-07] MEDS: Heparin VIAL(*) 5000 UNITS/ML VIAL (FIVE THOUSAND) SUBCUT SCH ×2 (06:01→12:29)
[2018-01-07 06:06] LABS: ABS Basophils 0.1 10^3/ul (0-0.2); ABS Eosinophils 0.3 10^3/ul (0-0.6); ABS Lymphocytes 3.7 10^3/ul (1.0-4.8); ABS Monocytes 0.6 10^3/ul (0-0.8); ABS Neutrophils 5.4 10^3/ul (1.5-7.7); ABS Nucleated RBC 0 10^3/ul; Eosinophil % 2.7 % (0-6); Hematocrit 37 % (35-47); Hemoglobin 12.2 g/dl (12.0-16.0); Lymphocyte % 36.7 % (25-47); Mean Corpuscular HGB Conc 33 g/dl (31-36); Mean Corpuscular Hemoglobin 30 pg (27-31); Mean Corpuscular Volume 89 fL (80-97); Mean Platelet Volume 9.6 um3 (7.4-10.4); Nucleated Red Blood Cells % 0.1; Platelet Count 275 10^3/ul (150-450); Red Blood Count 4.15 10^6/ul (4.00-5.40); Red Cell Distribution Width 14 % (10.5-15); White Blood Count 10.2 10^3/ul (3.5-10.8)
[2018-01-07 07:48] VITALS: BP 104/51
[2018-01-07] MEDS: Insulin LISPRO* 1 UNITS UNIT SUBCUT SCH ×2 (08:12→12:29)
[2018-01-07] MEDS: Insulin GLARGINE(*) 1 UNITS UNIT SUBCUT SCH (08:14)
[2018-01-07] MEDS: Metoprolol Succinate XL TAB* 50 MG PO SCH (08:14)
[2018-01-07] MEDS: DULoxetine DR CAP* 60 MG CAP.DR PO SCH (08:14)
[2018-01-07] MEDS: Aspirin EC TAB* 81 MG TAB.EC PO SCH (08:15)
[2018-01-07] MEDS: Atorvastatin* 40 MG TAB PO SCH (08:15)
[2018-01-07] MEDS: Witch Hazel PAD* JAR TOPICAL SCH (08:15)
[2018-01-07] MEDS: Famotidine TAB* 20 MG PO SCH (08:15)
[2018-01-07] MEDS: Lisinopril TAB* 10 MG PO SCH (09:43)
--- NOTE | 2018-01-07 14:04 | DS ---
DISCHARGE SUMMARY: ADDENDUM: Past medical history is significant for insulin dependent type 2 diabetes, hyperlipidemia, chronic neuropathic pain, hypothyroidism, hypertension, GERD, history of fall approximately 5 months ago with a right ankle and femur fracture which were non-operable. JACQUELINE ROMERO, BAG HANGER [id number]/[facility] #: [id number]
--- NOTE | 2018-01-07 14:20 | DS ---
DISCHARGE SUMMARY: DATE OF ADMISSION: 12/31/17 DATE OF DISCHARGE: 01/07/18 ATTENDING PHYSICIAN: Dr. Alston * (report dictated by Jacqueline Romero NP). PRIMARY CARE PROVIDER: No PCP. HOSPITAL STATUS: [facility] placement. HISTORY OF PRESENT ILLNESS AND HOSPITAL COURSE: Please see history and physical by Felicia Dickson NP, for full admission details but in summary , this is a 57- year-old female who was a resident of the [facility] in which she had just moved there 3 days prior. The staff called emergency services because they could not care for her and she was brought to the emergency department for evaluation and was admitted to the hospitalist service under [facility] care. The patient has been moved to nursing homes in 4 different counties since she sustained a fall and fractured her right ankle and femur, which were nonoperable. The patient has had difficulty with weightbearing and ambulation and has been able to ambulate with a walker, but continues to have increased physical therapy needs. Prior to her fracture, she lived at home with her mother and was ambulatory. The patient has done well throughout her hospitalization. Her labs have been unremarkable. She has noted hemorrhoids, which she has had intermittent bleeding, which recommendation was for her to follow up with a program project manager as an outpatient. Her hemoglobin and hematocrit are stable and have been checked multiple times throughout her stay. She has had noted blood pressures on the soft side between systolically, 90 and 120, in which her lisinopril has been cut in half from 20 mg daily to 10 mg daily. As well, her heart rate was noted to be in the 50s and 60s, and her metoprolol succinate has been cut from 50 to 25 mg daily. The patient was seen in consultation by psychiatrist, Dr. Hood and by Dr. Chowdary who states the patient lacks capacity to make informed medical decisions. PAST MEDICAL HISTORY: Past medical history is significant for insulin dependent type 2 diabetes, hyperlipidemia, chronic neuropathic pain, hypothyroidism, hypertension, GERD, history of fall approximately 5 months ago with a right ankle and femur fracture which were non-operable. DISCHARGE MEDICATIONS: 1. Synthroid 100 mcg p.o. daily. 2. Lisinopril 10 mg p.o. daily. 3. Lipitor 40 mg p.o. daily. 4. Aspirin 81 mg p.o. daily. 5. Zantac 150 mg p.o. b.i.d. 6. Metoprolol succinate XL 25 mg p.o. daily. 7. Cymbalta 60 mg p.o. daily. 8. Insulin glargine 40 units subcu b.i.d. 9. Lispro 25 units subcu t.i.d. 10. Senna 1 tab p.o. daily. PHYSICAL EXAMINATION: Vital Signs: Temperature 96.4, heart rate 61, respirations 18, blood pressure 126/48, pulse oximetry 99% on room air. Appearance: A 57-year- old female, sitting up in the chair, alert and oriented to self and place, in no acute distress. HEENT: Head is normocephalic, atraumatic. Pupils are equal and reactive to light. Oropharynx is clear. Moist mucous membranes. Cardiac: S1, S2. Regular rate and rhythm. Lungs are clear to auscultation bilaterally. Good aeration throughout. Abdomen: Obese, soft, nontender, nondistended. Normal bowel sounds throughout. Extremities: No clubbing, cyanosis, or edema. Moves all extremities. Right upper and lower extremities are slightly weaker than the left. Per the patient, this is her baseline since her fall. Neuro: Alert and oriented. No focal deficits noted. DISCHARGE PLAN: 1. Discharged to [facility] for subacute rehab. 2. Follow up with GI for significant hemorrhoids with intermittent bleeding. I have started the patient on a stool softener. 3. Monitor fingerstick blood glucose a.c. 4. PT/OT. 5. Please monitor the patient's heart rate and blood pressure due to recent change in medications. TIME SPENT: Approximately 60 minutes were spent on this discharge. JACQUELINE ROMERO NP [id number]/CPS #: [id number]/CPS #: [id number] SUSAN
[2018-01-08] MEDS ORDERED: Metoprolol Succinate XL TAB* 25 MG PO SCH (09:00)
[2018-01-08] MEDS ORDERED: Lisinopril TAB* 10 MG PO SCH (09:00)
== END 2018-01-07 15:00 | DRG 757 ==
LOC: ED 12:14 → MED 15:42 → OBSVTOIN 12-31 09:20
PROVIDERS: ADMIT Internal Medicine; ATTEND Internal Medicine
DX: F70 Mild intellectual disabilities (principal); R45.851 Suicidal ideations; Z68.42 Body mass index [BMI] 45.0-49.9, adult; E11.40 Type 2 diabetes mellitus with diabetic neuropathy, unspecified; G89.29 Other chronic pain; E78.5 Hyperlipidemia, unspecified; E03.9 Hypothyroidism, unspecified; I10 Essential (primary) hypertension; K21.9 Gastro-esophageal reflux disease without esophagitis; F32.9 Major depressive disorder, single episode, unspecified; M79.7 Fibromyalgia; F81.9 Developmental disorder of scholastic skills, unspecified; F17.210 Nicotine dependence, cigarettes, uncomplicated; E11.65 Type 2 diabetes mellitus with hyperglycemia; E66.9 Obesity, unspecified; R53.1 Weakness; K64.9 Unspecified hemorrhoids; Z87.440 Personal history of urinary (tract) infections; Z79.82 Long term (current) use of aspirin; Z79.4 Long term (current) use of insulin
CPT/HCPCS: 36415; 80053; 80320; 80329; 83036; 84443; 85014; 85018; 85025; 93005; 99283; A9270-GY; G0378; G0480; G8978-GP-CK; G8979-GP-CI; J1644